=== PATIENT | female | born 1990 | race Asian ===

== ENCOUNTER 2016-08-15 09:25 | Emergency (ER) | payer BC ==
[~2016-08-15] VITALS: Ht 162.6 cm; Wt 52.2 kg
--- NOTE | 2016-08-15 09:25 | NUR ---
Patient was BIBA at this time. Dr. Bacon evaluating patient.
[2016-08-15 09:32] VITALS: BP 128/86
--- NOTE | 2016-08-15 09:34 | NUR ---
Patient was taken to bed 05 via gurney per EMS.
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
[2016-08-15] MEDS ORDERED: SERT100T PO (09:36)
[2016-08-15] MEDS ORDERED: CLON2TAB PO (09:36)
[2016-08-15] MEDS ORDERED: QUET100T PO (09:36)
[2016-08-15] MEDS ORDERED: HYDROcodone/APAP 5/325 MG 1 TAB TAB PO ONE (09:40)
--- NOTE | 2016-08-15 09:52 | NUR ---
Patient going to CT via [facility].
--- NOTE | 2016-08-15 10:13 | NUR ---
Patient back from CT via [facility].
[2016-08-15 11:02] VITALS: BP 124/80
--- NOTE | 2016-08-15 11:02 | NUR ---
Patient discharged with v/s stable. Written and verbal after care instructions given and explained. Patient alert, oriented and verbalized understanding of instructions. Ambulatory with steady gait. All questions addressed prior to discharge. ID band removed. Patient advised to follow up with PMD. Rx of MOTRIN, ROBAXIN, AND NORCO given. Patient educated on indication of medication including possible reaction and side effects. Opportunity to ask questions provided and answered. DISCHARGED WITH FAMILY
== END 2016-08-15 11:02 | disposition home or self-care (01) ==
LOC: MED 09:25
DX: S06.0X1A Concussion with loss of consciousness of 30 minutes or less, initial encounter (principal); S16.1XXA Strain of muscle, fascia and tendon at neck level, initial encounter; S46.911A Strain of unspecified muscle, fascia and tendon at shoulder and upper arm level, right arm, initial encounter; V89.2XXA Person injured in unspecified motor-vehicle accident, traffic, initial encounter; Y93.89 Activity, other specified; Y92.89 Other specified places as the place of occurrence of the external cause; Y99.8 Other external cause status
CPT/HCPCS: 70450; 71010; 72125; 73030; 99284